=== PATIENT | male | born 1995 | race Caucasian/White ===

== ENCOUNTER 2020-05-17 08:11 | Emergency (ER) | payer SELFPAY ==
[~2020-05-17] VITALS: Ht 188 cm; Wt 87.1 kg
[2020-05-17 08:17] VITALS: BP 132/80
[2020-05-17] MEDS ORDERED: MUPIROCIN OINT 2%, 22GM EXT STA (08:29)
--- NOTE | 2020-05-17 09:00 | NUR ---
OINTMENT AND BANDAID APPLIED TO WOUND ON CHEST.
== END 2020-05-17 09:16 | disposition home or self-care (01) ==
LOC: ED 09:07
DX: L03.313 Cellulitis of chest wall (principal)
CPT/HCPCS: 99283

== ENCOUNTER 2020-05-17 12:09 | Emergency (ER) | payer OTHER ==
[~2020-05-17] VITALS: Ht 188 cm; Wt 85.0 kg
--- NOTE | 2020-05-17 12:24 | NUR ---
CAR HIKER: Pt to room no obivious stridor, throat swelling or irregular breathing.
[2020-05-17] MEDS ORDERED: ACETAMINOPHEN 500 MG TABLET ONE (12:44)
[2020-05-17] MEDS ORDERED: ACETAMINOPHEN 500 MG TABLET PO ONE (13:00)
[2020-05-17 13:03] LABS: BASOPHILS % (AUTO) 0 % (0-1); EOSINOPHILS % (AUTO) 0 % (1-7); LYMPHOCYTES % (AUTO) 8 % (22-44); MD NO; MEAN CORPUSCULAR HEMOGLOBIN 30.4 pg (27.5-34.5); MEAN CORPUSCULAR HGB CONC 33.8 g/dL (33.2-36.2); MEAN PLATELET VOLUME 8.8 fL (7.4-10.4); MONOCYTES # (AUTO) 0.01 x10^3/uL (0.2-0.8); MONOCYTES % (AUTO) 0 % (2-9); NEUTROPHILS # (AUTO) 7.21 x10^3/uL (1.8-6.8); NEUTROPHILS % (AUTO) 92 % (42-75); PLATELET COUNT 251 x10^3/uL (130-400); RED BLOOD COUNT 5.01 x10^6/uL (4.38-5.82); RED CELL DISTRIBUTION WIDTH 12.7 % (9.4-14.8)
--- NOTE | 2020-05-17 13:26 | NUR ---
Resting in [facility]. No needs.
[2020-05-17 14:02] VITALS: BP 121/70
--- NOTE | 2020-05-17 14:21 | NUR ---
Patient/Caregiver given discharge instructions and they have confirmed that they understand the instructions. Patient ambulatory with steady gait.
== END 2020-05-17 14:24 ==
LOC: ED 13:01
DX: B34.9 Viral infection, unspecified (principal); Z20.828 Contact with and (suspected) exposure to other viral communicable diseases; M79.10 Myalgia, unspecified site; R00.0 Tachycardia, unspecified
CPT/HCPCS: 36415; 71045; 85025; 86592; 87635; 93005; 99285

== ENCOUNTER 2020-05-19 18:29 | Inpatient (IN) | payer OTHER ==
[~2020-05-19] VITALS: Ht 188 cm; Wt 85.5 kg
--- NOTE | 2020-05-19 18:58 | NUR ---
PT REPROTS COMING IN TODAY DUE TO ABDOMINAL PAIN, NAUSEA, VOMITTING AND DIARRHEA. PT STATES HE HAS HAD DIARRHEA X3 DAYS ACCOMPANIED WITH NAUSEA AND VOMITTING. STATES AFTER EATING HE THROWS UP MORE BUT STATES ITS ONLY A FEW TIMES A DAY, PT POINT PERIUMBILICAL AREA WHEN ASKED WHERE PAIN IS LOCATED. VSS. LAB AT , PT PROVIDED WARM BLANKET FOR COMFORT, CALL LIGHT ON LAP, NAD. PT PLACED ON SPO2/BP MONITORING. WCTM. WAITING FOR TEST RESULTS.
[2020-05-19] MEDS ORDERED: ONDANSETRON 2MG/ML, 2ML IVPush ONE ×2 (19:00→20:30)
[2020-05-19] MEDS ORDERED: SODIUM CHLORIDE 0.9% 1,000ML IVBOLUS ONE ×2 (19:00→20:00)
[2020-05-19] MEDS ORDERED: SODIUM CHLORIDE FLUSH 10ML SYR IVF ONE (19:00)
[2020-05-19] MEDS ORDERED: ONDANSETRON 2MG/ML, 2ML ONE (19:05)
[2020-05-19 19:17] LABS: BASOPHILS # (AUTO) 0.01 x10^3/uL (0-0.1); BASOPHILS % (AUTO) 0 % (0-1); EOSINOPHILS # (AUTO) 0.27 x10^3/uL (0-0.4); EOSINOPHILS % (AUTO) 5 % (1-7); LYMPHOCYTES # (AUTO) 0.38 x10^3/uL (1-3.4); LYMPHOCYTES % (AUTO) 6 % (22-44); MD NO; MEAN CORPUSCULAR HEMOGLOBIN 30.2 pg (27.5-34.5); MEAN CORPUSCULAR VOLUME 88.8 fL (81-97); MEAN PLATELET VOLUME 9.5 fL (7.4-10.4); MONOCYTES # (AUTO) 0.29 x10^3/uL (0.2-0.8); MONOCYTES % (AUTO) 5 % (2-9); NEUTROPHILS # (AUTO) 5.06 x10^3/uL (1.8-6.8); NEUTROPHILS % (AUTO) 84 % (42-75); PLATELET COUNT 193 x10^3/uL (130-400); RED BLOOD COUNT 5.15 x10^6/uL (4.38-5.82); RED CELL DISTRIBUTION WIDTH 12.9 % (9.4-14.8)
[2020-05-19] MEDS ORDERED: OXYC5CAP2 PO (19:22)
[2020-05-19] MEDS ORDERED: LEVE750T8 PO (19:22)
[2020-05-19] MEDS ORDERED: HYDR-3590 PO (19:22)
[2020-05-19] MEDS ORDERED: QUET100T4 PO (19:22)
[2020-05-19] MEDS ORDERED: GABA600T7 PO (19:22)
[2020-05-19] MEDS ORDERED: HYDR20TA23 PO (19:22)
[2020-05-19] MEDS ORDERED: OXCA150T18 PO (19:22)
[2020-05-19] MEDS ORDERED: FLUD0.1T PO (19:22)
[2020-05-19] MEDS ORDERED: LOSA1TAB25 PO (19:22)
[2020-05-19] MEDS ORDERED: FURO40TA6 PO (19:22)
[2020-05-19] MEDS ORDERED: NICO-486 TD (19:22)
[2020-05-19 19:25] LABS: ALANINE AMINOTRANSFERASE 947 U/L (12-78); ALBUMIN 3.6 g/dL (3.4-5.0); ANION GAP 8 mmol/L (5-15); CALCIUM 8.8 mg/dL (8.5-10.1); CHLORIDE 102 mmol/L (98-107); CREATININE 1.34 mg/dL (0.7-1.3)
[2020-05-19 19:27] LABS: ALKALINE PHOSPHATASE 129 U/L (45-117); BILIRUBIN,TOTAL 6.3 mg/dL (0.2-1.0)
--- NOTE | 2020-05-19 19:57 | NUR ---
PT RESTING ON GURNEY, NAD, NO CHANGE IN CONDITION, STILL REPORTS SIGNIFICANT AMOUNTS OF NAUSEA. VSS. PT TO BE ADMITTED, WCTM. WAITING FOR ADMIT BED.
[2020-05-19] MEDS ORDERED: PROMETHAZINE 25 MG/ML, 1ML IM ONE (20:11)
[2020-05-19 20:12] LABS: MICROSCOPIC NOT IND
[2020-05-19] MEDS ORDERED: PROMETHAZINE 25 MG/ML, 1ML ONE (20:21)
[2020-05-19 20:23] LABS: AMPHETAMINE SCREEN, URINE Negative (Negative); BARBITURATE SCREEN, URINE Negative (Negative); BENZODIAZEPINE SCREEN, URINE Negative (Negative); CANNABINOID SCREEN, URINE Positive (Negative); COCAINE SCREEN, URINE Negative (Negative); METHADONE SCREEN, URINE Negative (Negative); OPIATE SCREEN, URINE Negative (Negative)
--- NOTE | 2020-05-19 20:30 | NUR ---
LATE ENTRY D/T PT CARE: PT MEDICATED PER NOV, NAD, ABDOMINAL DISCOMFORT DECREASING. WAITING FOR ADMIT BED. WCTM.
[2020-05-19] MEDS ORDERED: DOCUSATE 100 MG CAPSULE PO PRN (21:00)
[2020-05-19] MEDS ORDERED: POLYETHYLENE GLYCOL 17 GM PACKET PO PRN (21:00)
[2020-05-19] MEDS ORDERED: OXYcodone IR 5MG TABLET PO PRN (21:00)
[2020-05-19] MEDS ORDERED: ONDANSETRON 2MG/ML, 2ML IVPush PRN (21:00)
[2020-05-19] MEDS ORDERED: morphine SULFATE 10 MG/ML, 1ML IVPush PRN (21:00)
[2020-05-19] MEDS ORDERED: BISACODYL 10 MG SUPP PR PRN (21:00)
[2020-05-19] MEDS ORDERED: PROMETHAZINE 25 MG/ML, 1ML IM PRN (21:00)
[2020-05-19] MEDS: AMPICILLIN/SULBACTAM 3 GM in SODIUM CHLORIDE 0.9% 100 ML IV SCH (21:00)
[2020-05-19] MEDS: LACTATED RINGERS 1,000 ML IV SCH (21:18)
[2020-05-19 21:27] LABS: FREE T4 (FREE THYROXINE) 1.49 ng/dL (0.76-1.46)
--- NOTE | 2020-05-19 21:44 | NUR ---
pt given ice chips per request, okay'd my h . pt nad, resting on gurney, appears comfortable. denies additional needs at this time. VSS. luciustm.
--- NOTE | 2020-05-19 22:28 | NUR ---
PT APPEARS TO BE SLEEPING IN GURNEY, NAD, VSS, EYES CLOSED, APPEARS COMFORTABLE, EVEN AND UNLABORED RESPIRATIONS NOTED, CALL LIGHT ON LAP, WCTM.
--- NOTE | 2020-05-19 23:40 | NUR ---
PT RESTING ON GURNEY, NAD, APPEARS COMFORTABLE, VSS, EYES CLOSED, WCTM. WAITING FOR ADMIT BED.
--- NOTE | 2020-05-20 01:00 | NUR ---
LATE ENTRY D/T PT CARE: PT MOVED TO HOSPITAL BED, TRANSFERRED WITH A SMOOTH AND STEADY GAIT, VSS, NAD, EVEN AND UNLABORED RESPIRATIONS NOTED, BED IN LOWEST POSITION, CALL LIGHT ON LAP, WCTM. WAITING FOR ADMIT BED.
[2020-05-20] MEDS: LACTATED RINGERS 1,000 ML IV SCH ×2 (02:00→13:14)
--- NOTE | 2020-05-20 02:15 | NUR ---
PT RESTING ON HOSPITAL BED, VSS, NAD, EYES CLOSED, EVEN AND UNLABORED RESPIRATIONS NOTED, WCTM. WAITING FOR ADMIT BED.
[2020-05-20] MEDS: AMPICILLIN/SULBACTAM 3 GM in SODIUM CHLORIDE 0.9% 100 ML IV SCH ×3 (03:00→17:15)
--- NOTE | 2020-05-20 03:23 | NUR ---
PT RESTING ON HOSPITAL BED, VSS, NAD, EYES CLOSED, EVEN AND UNLABORED RESPIRATIONS NOTED, WCTM. WAITING FOR ADMIT BED.
--- NOTE | 2020-05-20 04:20 | NUR ---
PT RESTING ON HOSPTIAL BED, NAD, EVEN AND UNLABORED RESPIRATIONS, APPEARS COMFORTABLE, WAITING FOR ADMIT BED, WCTM.
--- NOTE | 2020-05-20 04:30 | NUR ---
PT AMBULATED TO AND FROM RESTROOM WITH A SMOOTH AND STEADY GAIT, NAD, VSS, DENIES ADDITIONAL NEEDS AT THIS TIME. WCTM. WAITING FOR ADMIT BED.
[2020-05-20 04:43] LABS: BASOPHILS % (AUTO) 0 % (0-1); EOSINOPHILS # (AUTO) 0.26 x10^3/uL (0-0.4); EOSINOPHILS % (AUTO) 6 % (1-7); LYMPHOCYTES # (AUTO) 0.45 x10^3/uL (1-3.4); LYMPHOCYTES % (AUTO) 9 % (22-44); MD NO; MEAN CORPUSCULAR HGB CONC 33.7 g/dL (33.2-36.2); MEAN CORPUSCULAR VOLUME 89.1 fL (81-97); MEAN PLATELET VOLUME 9.6 fL (7.4-10.4); MONOCYTES # (AUTO) 0.21 x10^3/uL (0.2-0.8); MONOCYTES % (AUTO) 4 % (2-9); NEUTROPHILS # (AUTO) 3.88 x10^3/uL (1.8-6.8); NEUTROPHILS % (AUTO) 81 % (42-75); PLATELET COUNT 181 x10^3/uL (130-400); RED BLOOD COUNT 4.74 x10^6/uL (4.38-5.82); RED CELL DISTRIBUTION WIDTH 12.8 % (9.4-14.8)
[2020-05-20 04:48] LABS: ALANINE AMINOTRANSFERASE 750 U/L (12-78); ANION GAP 8 mmol/L (5-15); CALCIUM 8.2 mg/dL (8.5-10.1); CHLORIDE 110 mmol/L (98-107); CHOLESTEROL, TOTAL 113 mg/dL (140-239); CREATININE 0.99 mg/dL (0.7-1.3); TRIGLYCERIDES 257 mg/dL (50-200); VLDL CHOLESTEROL 51 mg/dL (0-25)
[2020-05-20 04:50] LABS: ALKALINE PHOSPHATASE 134 U/L (45-117); BILIRUBIN,TOTAL 5.5 mg/dL (0.2-1.0); CHOL/HDL RATIO 12.6; HDL CHOL % 8 % (26-37); HDL CHOLESTEROL (DIRECT) 9 mg/dL (40-60); LDL CHOLESTEROL,CALCULATED 53 mg/dL (54-169); LDL/HDL RATIO 5.9 (0.5-3.0); TOTAL PROTEIN 5.9 g/dL (6.4-8.2)
--- NOTE | 2020-05-20 05:25 | NUR ---
PT MEDICATED PER MAR, NAD, P/W/D, APPEARS COMFORTABLE, NO CHANGE IN CONDITION, WCTM. WAITING FOR ADMIT BED.
--- NOTE | 2020-05-20 06:27 | NUR ---
PT NAD, EYES CLOSED, EVEN AND UNLABORED RESPIRATIONS, VSS, P/W/D, WAITING FOR ADMIT BED. WCTM.
--- NOTE | 2020-05-20 06:54 | NUR ---
report to Clint BAILEY, pt care transferred at this time.
--- NOTE | 2020-05-20 06:54 | NUR ---
Report received from LYNN Lala
--- NOTE | 2020-05-20 07:08 | NUR ---
Pt sleeping, no needs at this time, updated on POC.
--- NOTE | 2020-05-20 08:21 | NUR ---
Report provided to LYNN Guerrero. Ready for transport [id number]
[2020-05-20] MEDS: DOXYCYCLINE 100MG CAP PO SCH ×2 (13:12→21:26)
[2020-05-20 14:10] VITALS: BP 112/70
[2020-05-20 19:08] VITALS: BP 136/76
[2020-05-20] MEDS: ONDANSETRON ODT 4 MG PO PRN (21:41)
[2020-05-21] MEDS: AMPICILLIN/SULBACTAM 3 GM in SODIUM CHLORIDE 0.9% 100 ML IV SCH ×4 (00:35→18:12)
[2020-05-21 00:44] VITALS: BP 122/67
[2020-05-21 05:44] LABS: BASOPHILS # (AUTO) 0.01 x10^3/uL (0-0.1); BASOPHILS % (AUTO) 0 % (0-1); EOSINOPHILS # (AUTO) 0.37 x10^3/uL (0-0.4); EOSINOPHILS % (AUTO) 9 % (1-7); LYMPHOCYTES # (AUTO) 1.13 x10^3/uL (1-3.4); LYMPHOCYTES % (AUTO) 28 % (22-44); MD NO; MEAN CORPUSCULAR HEMOGLOBIN 29.7 pg (27.5-34.5); MEAN CORPUSCULAR HGB CONC 33.2 g/dL (33.2-36.2); MEAN CORPUSCULAR VOLUME 89.5 fL (81-97); MONOCYTES # (AUTO) 0.46 x10^3/uL (0.2-0.8); MONOCYTES % (AUTO) 11 % (2-9); NEUTROPHILS # (AUTO) 2.07 x10^3/uL (1.8-6.8); NEUTROPHILS % (AUTO) 51 % (42-75); PLATELET COUNT 190 x10^3/uL (130-400); RED BLOOD COUNT 4.58 x10^6/uL (4.38-5.82); RED CELL DISTRIBUTION WIDTH 13.3 % (9.4-14.8)
[2020-05-21 05:49] LABS: ALBUMIN 2.7 g/dL (3.4-5.0); ANION GAP 4 mmol/L (5-15); CALCIUM 8.3 mg/dL (8.5-10.1); CHLORIDE 110 mmol/L (98-107)
[2020-05-21 05:54] LABS: ALANINE AMINOTRANSFERASE 570 U/L (12-78); ALKALINE PHOSPHATASE 168 U/L (45-117); CREATININE 0.93 mg/dL (0.7-1.3); TOTAL PROTEIN 5.8 g/dL (6.4-8.2)
[2020-05-21 08:01] VITALS: BP 113/66
[2020-05-21] MEDS: DOXYCYCLINE 100MG CAP PO SCH ×2 (09:01→20:59)
[2020-05-21] MEDS: SODIUM CHLORIDE 0.9% 1,000 ML IV SCH ×2 (11:43→21:00)
[2020-05-21 14:51] VITALS: BP 99/61
[2020-05-21 19:14] VITALS: BP 123/75
[2020-05-21] MEDS: ONDANSETRON ODT 4 MG PO PRN (21:09)
[2020-05-22 00:24] VITALS: BP 109/71
[2020-05-22] MEDS: AMPICILLIN/SULBACTAM 3 GM in SODIUM CHLORIDE 0.9% 100 ML IV SCH ×3 (00:35→12:12)
[2020-05-22] MEDS: SODIUM CHLORIDE 0.9% 1,000 ML IV SCH ×3 (01:50→14:00)
[2020-05-22 06:28] LABS: ALANINE AMINOTRANSFERASE 474 U/L (12-78); ALBUMIN 2.6 g/dL (3.4-5.0); ANION GAP 5 mmol/L (5-15); BILIRUBIN, DIRECT 5.6 mg/dL (0.1-0.2); CALCIUM 8.3 mg/dL (8.5-10.1); CHLORIDE 113 mmol/L (98-107); CREATININE 0.87 mg/dL (0.7-1.3)
[2020-05-22 06:33] LABS: ALKALINE PHOSPHATASE 189 U/L (45-117); BILIRUBIN,INDIRECT 1.3 mg/dL (0.0-2.0); BILIRUBIN,TOTAL 6.9 mg/dL (0.2-1.0); TOTAL PROTEIN 5.6 g/dL (6.4-8.2)
[2020-05-22] MEDS: DOXYCYCLINE 100MG CAP PO SCH (08:09)
[2020-05-22 08:39] VITALS: BP 110/64
[2020-05-22 14:21] VITALS: BP 118/79
[2020-05-22] MEDS ORDERED: DOXY100C2 PO (14:32)
[2020-05-22] MEDS ORDERED: AMOX1TAB64 PO (14:32)
== END 2020-05-22 15:27 | disposition home or self-care (01) | DRG 438 ==
LOC: ED 19:55 → EDIP 20:50 → 3N 05-20 09:10
PROVIDERS: ADMIT Internal Medicine; ATTEND Hospitalist
DX: K85.90 Acute pancreatitis without necrosis or infection, unspecified (principal); N17.0 Acute kidney failure with tubular necrosis; E87.1 Hypo-osmolality and hyponatremia; L03.311 Cellulitis of abdominal wall; L03.313 Cellulitis of chest wall; F17.210 Nicotine dependence, cigarettes, uncomplicated; F12.90 Cannabis use, unspecified, uncomplicated; Z80.8 Family history of malignant neoplasm of other organs or systems; Z88.2 Allergy status to sulfonamides; Z88.8 Allergy status to other drugs, medicaments and biological substances
CPT/HCPCS: 36415; 74181; 76700; 80053; 80061; 80074; 80307; 81003; 82247; 82248; 82787; 82977; 83036; 83690; 83735; 84439; 84443; 85025; 86038; G0378; J0295; J2405; J2550; Q0162; J7030; J7120